=== PATIENT | female | born 1950 ===

== ENCOUNTER 2023-04-17 11:05 | Emergency (ER) | payer OTHER ==
[~2023-04-17] VITALS: Ht 149.9 cm; Wt 42.2 kg
[2023-04-17] MEDS ORDERED: CEPH500B PO (11:47)
[2023-04-17] MEDS ORDERED: TETANUS/DIPHTHERIA TOXOID [ADULT] 0.5 ML VIAL IM ONE (12:00)
[2023-04-17] MEDS ORDERED: CEFAZOLIN SODIUM 1 GM VIAL IM SCH (12:00)
[2023-04-17 14:00] VITALS: BP 156/74; PULSE 18; RESP 17; O2SAT 100
== END 2023-04-17 14:01 | disposition home or self-care (01) ==
LOC: EDH 11:05
DX: S61.214A Laceration without foreign body of right ring finger without damage to nail, initial encounter (principal); E11.9 Type 2 diabetes mellitus without complications; W45.8XXA Other foreign body or object entering through skin, initial encounter; Y93.89 Activity, other specified; Y92.89 Other specified places as the place of occurrence of the external cause; Y99.8 Other external cause status
CPT/HCPCS: 99284; 90714; 73140; 96372; 90471; 12001; J0690 ×2

== ENCOUNTER 2023-04-25 10:23 | Emergency (ER) | payer OTHER ==
[~2023-04-25] VITALS: Ht 149.9 cm; Wt 42.2 kg
[~2023-04-25 10:23] MED LIST: CEPH500B PO
[2023-04-25 12:40] VITALS: BP 134/86; PULSE 60; RESP 20; O2SAT 96
== END 2023-04-25 12:59 | disposition home or self-care (01) ==
LOC: EDH 10:23
DX: S61.215D Laceration without foreign body of left ring finger without damage to nail, subsequent encounter (principal); X58.XXXD Exposure to other specified factors, subsequent encounter
CPT/HCPCS: 99281